=== PATIENT | female | born 1980 | race Caucasian/White ===

== ENCOUNTER 2016-05-22 15:23 | Emergency (ER) | payer MEDICAID ==
[~2016-05-22] VITALS: Wt 79.0 kg
[~2016-05-22 15:23] MED LIST: IBUP-1542 PO
[2016-05-22] MEDS ORDERED: AMO500 PO (16:07)
[2016-05-22] MEDS ORDERED: FLUT16SP17 NASAL (16:08)
[2016-05-22] MEDS ORDERED: IBUP-1542 PO (16:08)
--- NOTE | 2016-05-22 16:12 | ERD ---
ER Documentation Chief Complaint Date/Time DATE: 05/22/16 TIME: 16:10 Chief Complaint R EAR PAIN X 2 WEEKS HPI Physical 35-year-old female who presents to the emergency department today complaining of left ear pain for the past week. Patient say she has taken Tylenol with no improvement. Denies any sore throat, cough, runny nose. States she had a fever the first day but that improved. ROS All systems reviewed and are negative except as per history of present illness. Medications Home Meds Active Scripts Fluticasone Propionate* (Fluticasone Propionate* Nasal) 50 Mcg/[place] - 16 Gm [place].susp, 1 SPRAY NASAL BID, #1 BOTTLE TO EACH NOSTRIL Prov:MIKE BREEN PA-C 05/22/16 Ibuprofen* (Motrin*) 600 Mg Tab, 600 MG PO Q6, #30 TAB Prov:MIKE BREEN PA-C 05/22/16 Amoxicillin* (Amoxicillin*) 500 Mg Cap, 500 MG PO TID for 10 Days, CAP Prov:MIKE BREEN PA-C 05/22/16 Ibuprofen* (Motrin*) 600 Mg Tab, 600 MG PO BID, #30 TAB 0 Refills Prov:DARIEL MORRISON PA-C 06/25/15 Allergies Allergies: Coded Allergies: No Known Allergy (Unverified , 05/03/14) PMhx/Soc History of Surgery: Yes (3 c sections) Hx Neurological Disorder: No Hx Respiratory Disorders: No Hx Cardiac Disorders: No Hx Psychiatric Problems: No Hx Miscellaneous Medical Probl: No Hx Alcohol Use: No Hx Substance Use: No Hx Tobacco Use: No Physical Exam Vitals Vital Signs Date Time Temp Pulse Resp B/P Pulse Ox O2 Delivery O2 Flow Rate FiO2 05/22/16 15:28 98.0 74 16 142/71 99 Physical Exam Const: No acute distress Head: Atraumatic Eyes: Normal Conjunctiva ENT: Ear TM normal. Left ear with mild TM erythema. Nose no drainage. Throat no erythema no exudate Neck: Full range of motion..~ No meningismus. Resp: Clear to auscultation bilaterally Cardio: Regular rate and rhythm, no murmurs Skin: No petechiae or rashes Neur: Awake and alert Psych: Normal Mood and Affect Procedures/MDM Is a 35 year old female presents to the emergency department today complaining of left ear pain for the past week. On physical exam patient does have some mild TM erythema given the length of duration of symptoms I will treat the patient with amoxicillin for possible otitis media. There is no purulent drainage and no mastoid tenderness and low suspicion for otitis externa, mastoiditis. Patient is afebrile and otherwise well appearing. Low suspicion for sepsis or deep space infection. Patient was also given a prescription for Motrin for pain. I also did give her a prescription for Flonase to treat possible eustachian tube dysfunction. I do not feel she requires steroids at this time. At this time the patient is stable for discharge and outpatient management. Patient should follow up with their PCP in the next 1-2 days. They may return to the emergency department sooner for any persistent or worsening of symptoms. Patient understood and agreed with the plan. Departure Diagnosis: Primary Impression: Left ear pain Condition: Fair Patient Instructions: Common Middle Ear Problems Additional Instructions: Llame al doctor ALLYSON y ariadna caesar ALFREDA PARA DENTRO DE 1-2 HUERTA.Dgale a la secretaria que nosotros le instruimos hacer esta alfreda.Avise o llame si costello condicin se empeora antes de la alfreda. Regresa aqui si peor o no mejor. Take antibiotics as prescribed Take Motrin or Tylenol for pain Use Flonase as prescribed MIKE BREEN PA-C May 22, 2016 16:12
[2016-05-22 16:31] VITALS: BP 120/80; PULSE 68; RESP 18; TEMP 99.2
== END 2016-05-22 16:31 | disposition home or self-care (01) ==
LOC: FTE 15:23
DX: H92.02 Otalgia, left ear (principal)
CPT/HCPCS: 99283

== ENCOUNTER 2016-06-17 13:09 | Emergency (ER) | payer MEDICAID ==
[~2016-06-17] VITALS: Wt 68.0 kg
[~2016-06-17 13:09] MED LIST changes: +AMO500 PO; +FLUT16SP17 NASAL
[2016-06-17] MEDS ORDERED: NASO17 NASAL (13:55)
--- NOTE | 2016-06-17 13:59 | ERD ---
ER Documentation Chief Complaint Date/Time DATE: 06/17/16 TIME: 13:57 Chief Complaint RUNNY NOSE AND WATERY EYES FOR 4 DAYS. WORSE WITH BENADRYL HPI 35-year-old female tells me that for the last 2 months when she gets home she feels like her carpet is making her have allergies. She has an itchy eyes and a runny nose. This is worse at night. She states that she takes Benadryl but when she takes Benadryl, she wakes getting very depressed this makes her sad and she tells me that she cannot handle the sadness anymore and therefore she came to the emergency department for summary to help with her allergies and that she did get sad from the Benadryl. Patient reports no fevers, chills wheezing or difficulty breathing. In relationship to her depression, she reports no suicidal or homicidal thoughts , no auditory or visual hallucinations. ROS All systems reviewed and are negative except as per history of present illness. Medications Home Meds Active Scripts Mometasone Furoate* (Nasonex*) 50 Mcg/[place] - 17 Gm [place].pump, 2 SPRAY NASAL BID, #1 BOTTLE TO EACH NOSTRIL Prov:CONNIE NEVILLE 06/17/16 Fluticasone Propionate* (Fluticasone Propionate* Nasal) 50 Mcg/[place] - 16 Gm [place].susp, 1 SPRAY NASAL BID, #1 BOTTLE TO EACH NOSTRIL Prov:MIKE BREEN PA-C 05/22/16 Ibuprofen* (Motrin*) 600 Mg Tab, 600 MG PO Q6, #30 TAB Prov:MIKE BREEN PA-C 05/22/16 Amoxicillin* (Amoxicillin*) 500 Mg Cap, 500 MG PO TID for 10 Days, CAP Prov:MIKE BREEN PA-C 05/22/16 Ibuprofen* (Motrin*) 600 Mg Tab, 600 MG PO BID, #30 TAB 0 Refills Prov:DARIEL MORRISON PA-C 06/25/15 Allergies Allergies: Coded Allergies: No Known Allergy (Unverified , 06/17/16) PMhx/Soc History of Surgery: Yes (3 c sections) Hx Neurological Disorder: No Hx Respiratory Disorders: No Hx Cardiac Disorders: No Hx Psychiatric Problems: No Hx Miscellaneous Medical Probl: No Hx Alcohol Use: No Hx Substance Use: No Hx Tobacco Use: No Smoking Status: Never smoker FmHx Noncontributory for chief complaint Physical Exam Vitals Vital Signs Date Time Temp Pulse Resp B/P Pulse Ox O2 Delivery O2 Flow Rate FiO2 06/17/16 13:24 98.5 62 20 131/76 99 Physical Exam GENERAL: The patient is well developed and appropriate for usual state of health in no apparent distress HEENT: Pupils equal, round, and reactive to light. EOMI. There is no scleral icterus. NECK: C-spine is soft and supple, there is no meningismus. There is no cervical lymphadenopathy. LUNGS: Clear to auscultation bilaterally. There are no rales, wheezes or rhonchi. HEART: Regular rate and rhythm, no murmurs, clicks, rubs or gallops. Skin: No rash Procedures/MDM Patient was taken to a room, seen and examined Medical decision makin-year-old female presents the emergency department with a questionable allergic rhinitis. This time, patient shows no evidence of significant allergy, significant respiratory distress. In regards to her depression, she does not feel the that she is suicidal and appears to be appropriate for outpatient care. Departure Diagnosis: Primary Impression: Allergic rhinitis Patient Instructions: Allergic Rhinitis Additional Instructions: I suggest that you have the carpet cleaned or replaced CONNIE NEVILLE Jun 17, 2016 13:59
== END 2016-06-17 14:18 | disposition home or self-care (01) ==
LOC: FTE 13:09
DX: J30.9 Allergic rhinitis, unspecified (principal)
CPT/HCPCS: 99283

== ENCOUNTER 2016-07-14 16:43 | Emergency (ER) | payer MEDICAID ==
[~2016-07-14] VITALS: Wt 73.0 kg
[~2016-07-14 16:43] MED LIST changes: +NASO17 NASAL
[2016-07-14] MEDS ORDERED: LORA10CA PO (17:03)
[2016-07-14] MEDS ORDERED: PSEU120T51 PO (17:03)
[2016-07-14] MEDS ORDERED: FLUT9.9S NASAL (17:03)
--- NOTE | 2016-07-14 17:18 | ERD ---
ER Documentation Chief Complaint Date/Time DATE: 07/14/16 TIME: 17:14 Chief Complaint BILATERAL EAR PRESSURE AND CLOGGED FOR THE PAST FEW DAYS. NO COUGH HPI This is a 35-year-old female presents to the ER with bilateral ear pressure for the last couple of months. Patient feels as if her ears are well the she needs an ear lavage. A does not have any ear pain. Does not have any fevers or chills. She doesn't feel more head pain and pressure some time. She has not traveled anywhere there is no history of any trauma to the ear. She denies any tinnitus. She denies any hearing loss. ROS 12 point review of systems was done, all negative except per HPI. Medications Home Meds Active Scripts Loratadine* (Claritin*) 10 Mg Capsule, 10 MG PO DAILY for 14 Days, CAP Prov:SURI MOURA 07/14/16 Fluticasone Propionate (Flonase Allergy Relief) 9.9 Ml [place].susp, 1 SPRAY NASAL BID for 14, #1 BOTTLE TO EACH NOSTRIL Prov:SURI MOURA 07/14/16 Pseudoephedrine Hcl (Sudafed 12 Hour) 120 Mg Tablet.sa, 120 MG PO BID for 7 Days Prov:SURI MOURA 07/14/16 Mometasone Furoate* (Nasonex*) 50 Mcg/[place] - 17 Gm [place].pump, 2 SPRAY NASAL BID, #1 BOTTLE TO EACH NOSTRIL Prov:CONNIE NEVILLE 06/17/16 Fluticasone Propionate* (Fluticasone Propionate* Nasal) 50 Mcg/[place] - 16 Gm [place].susp, 1 SPRAY NASAL BID, #1 BOTTLE TO EACH NOSTRIL Prov:MIKE BREEN PA-C 05/22/16 Ibuprofen* (Motrin*) 600 Mg Tab, 600 MG PO Q6, #30 TAB Prov:MIKE BREEN PA-C 05/22/16 Amoxicillin* (Amoxicillin*) 500 Mg Cap, 500 MG PO TID for 10 Days, CAP Prov:MIKE BREEN PA-C 05/22/16 Ibuprofen* (Motrin*) 600 Mg Tab, 600 MG PO BID, #30 TAB 0 Refills Prov:DARIEL MORRISON PA-C 06/25/15 Allergies Allergies: Coded Allergies: No Known Allergy (Unverified , 06/17/16) PMhx/Soc History of Surgery: Yes (3 c sections) Hx Neurological Disorder: No Hx Respiratory Disorders: No Hx Cardiac Disorders: No Hx Psychiatric Problems: No Hx Miscellaneous Medical Probl: No Hx Alcohol Use: No Hx Substance Use: No Hx Tobacco Use: No Physical Exam Vitals Vital Signs Date Time Temp Pulse Resp B/P Pulse Ox O2 Delivery O2 Flow Rate FiO2 07/14/16 16:52 99.0 70 20 135/61 99 Physical Exam GENERAL: The patient is well-developed, well-nourished, in no acute distress. HEENT: Atraumatic. Pupils equal, round and reactive to light. Extraocular muscles are grossly intact. Conjunctivae pink, no discharge. Bilateral tympanic membranes are clear with no evidence of erythema, effusion or dulling of the light reflex. No tonsillar erythema. Neck to palpation over the frontal sinus RESPIRATORY: Clear to auscultation bilaterally. There are no rales, wheezes or rhonchi. HEART: Regular rate and rhythm. No murmurs, clicks, rubs or gallops. NEUROLOGIC: Alert and oriented. SKIN: The skin is warm and dry. Procedures/MDM This is a 35-year-old female presents to the ER with bilateral ear pressure. At this time there is no evidence of tympanic membrane erythema. Patient with 32 given a child antibiotics which did not take away her symptoms. I do not believe that patient has otitis media. There is no evidence of cerumen impaction. Patient examination is completely benign. Patient may have sinus pressure which is causing the feeling of pressure in bilateral ears. Patient will be sent home with Priyanka Reese Claritin. Patient has had these symptoms for the last 2 months, some melenic he will chronic problem. Patient is requesting ear drops for her urine however there is no reason to give patient ear drops as there is no signs or symptoms of infection or cerumen impaction. She needs to follow-up with her primary care doctor seen ENT doctor be symptoms continue. Patient could have a eustachian tube disorder, which I cannot diagnose that this time. I shared my medical decision making with the patient she understands and agrees with plan. She should return to ER sooner symptoms worsen. Departure Diagnosis: Primary Impression: Otalgia Condition: Stable Patient Instructions: Understanding Sinus Problems Additional Instructions: Llame al doctor MAANA y ariadna caesar ALFREDA PARA DENTRO DE 1-2 HUERTA.Dgale a la secretaria que nosotros le instruimos hacer esta alfreda.Avise o llame si costello condicin se empeora antes de la alfreda. Regresa aqui si peor o no mejor. SURI MOURA Jul 14, 2016 17:18
== END 2016-07-14 18:05 | disposition home or self-care (01) ==
LOC: E/R 16:43
DX: H66.93 Otitis media, unspecified, bilateral (principal)
CPT/HCPCS: 99283

== ENCOUNTER 2017-06-08 08:08 | Emergency (ER) | END 2017-06-08 11:52 | disposition home or self-care (01) ==

== ENCOUNTER 2018-02-16 23:26 | Emergency (ER) | END 2018-02-17 03:38 | disposition home or self-care (01) ==